=== PATIENT | male | born 1950 | race Caucasian/White ===

== ENCOUNTER 2016-08-17 13:35 | Day surgery (SDC) | payer OTHER ==
[~2016-08-17] VITALS: Ht 185.4 cm; Wt 90.0 kg
[~2016-08-17 13:35] MED LIST: ASPI-973 PO; ATOR80TA PO; COU5 PO; CYA1000I IM; FERR325T6 PO; GLYB2.5T5 PO; LISI1TAB9 PO; METF850T2 PO; METO25TA6 PO
[2016-08-17] MEDS ORDERED: Propofol 10,000 mCg/mL 20 mL Inj ONE (13:36)
[2016-08-17] MEDS ORDERED: Lidocaine PF 1% 30 mL Inj ONE (13:36)
[2016-08-17] MEDS ORDERED: MeTOProlol 1 mg/mL 5 mL Inj ONE (13:36)
[2016-08-17 14:05] VITALS: BP 151/91; PULSE 74; RESP 16; O2SAT 97
[2016-08-17] MEDS ORDERED: WARF5TAB PO (14:22)
--- NOTE | 2016-08-17 14:38 | PCM.HPANE ---
Patient Data Date of Service: August 17, 2016 Surgeon Admitting Provider: Attending Provider:Matthew Wright MD Primary Care Physician:Ladarius James MD Other Provider:Abril Santiago Anesthesia Reason for Visit Iron Def Anemia Ht/WT & BMI Height (Feet): 6 Height (Inches): 1 Weight (Kilograms): 90 Body Mass Index 26.00 Allergies Coded Allergies: No Known Allergies (Verified , 05/06/12) Past Anesthesia History Anesthesia History: Denies:: Abnormal Airway, Anesthesia Reactions, Difficult Intubation, Fam Anesthesia Reaction, Fam Malignant Hypertherm, Malignant Hyperthermia Diabetes History Hx Diabetes?: Yes Current Bedside Blood Glucose: 173 MRSA MRSA: No Medications Blood Thinner: Coumadin Last Dose Blood Thinner: August 12, 2016 Home Meds Incl Beta Andrew: Yes Date Beta Andrew Taken: August 15, 2016 Time Beta Andrew Taken: 0700 Previous Beta Andrew Dose >24: Give Dose Perioperatively Reported Medications Warfarin Sodium (Coumadin)5 Mg Tablet5 Mg PO DAILY 30 Days Ref 0 08/17/16 Metoprolol Tartrate 25 Mg Evhqlh99 Mg PO BID 30 Days Ref 0 08/13/16 Metformin 850 Mg Otbrgv251 Mg PO TID Ref 0 08/13/16 Lisinopril / HCTZ 20-12.5 mg 1 Each Tablet1 Each PO BID Ref 0 08/13/16 Ferrous Sulfate 325 Mg Tablet.dr325 Mg PO DAILY 30 Days Ref 0 08/13/16 Atorvastatin (Lipitor)80 Mg Oyreeo70 Mg PO DAILY Ref 0 08/13/16 Aspirin 81 Mg Vfwhdk26 Mg PO DAILY Ref 0 08/13/16 Warfarin Inactive Drug Do Not Use (Coumadin Inactive Drug Do Not Use)5 Mg Tablet5 Mg PO DAILY 1700 (5 PM) DAILY. To prevent blood clots 05/08/12 Glyburide-Expunged Drug, Do Not Renew! 2.5 Mg Tablet5 Mg PO BID For blood glucose control 05/05/12 Discontinued Reported Medications Cyanocobalamin (Cyanocobalamin Injection)1,000 Mcg/1 Ml Vial1,000 Mcg IM Monthly 08/13/16 Lisinopril-Expunged Drug, Do Not Renew! 10 Mg Shlxfd10 Mg PO DAILY For blood pressure control. 05/08/12 Metoprolol Tart-Expunged Drug, Do Not Renew! 50 Mg Zqxezr49 Mg PO BID For blood pressure/heart rate control. 05/08/12 Aspirin-Expunged Drug, Do Not Renew! 325 Mg Tnjlld338 Mg PO DAILY To protect your heart. 05/08/12 Lovastatin-Expunged Drug, Do Not Renew! 40 Mg Gmhbsl67 Mg PO To reduce cholesterol 05/05/12 Metformin-Expunged Drug, Do Not Renew! 1,000 Mg Tab.er.18193 Mg PO TID 05/05/12 History History of ENT Problems?: No HEENT History: Denies:: Abnormal Airway Difficult Intubation Dysphagia Hearing Problem Denture Type: Full- Upper Teeth Condition: Missing Teeth Hx of Heart Problems?: No Cardiovascular History: Positive for:: Atrial Fibrillation Hypertension Irregular Heartbeat (Afib today 05/05/12) Denies:: AICD Cardiac Surgery Chest Pain Congestive Heart Failure Edema Heart Murmur Pacemaker Thrombophlebitis Valvular Heart Disease Hx of Respiratory Problem?: Yes Respiratory History: Denies:: Asthma COPD Chest Surgery Cough Dyspnea Emphysema Hemoptysis Pneumonia Tuberculosis Hx Neurologic Problems?: No Neurological History: Denies:: CVA Hx of GI Problems?: Yes Hx of Problems?: Yes Genitourinary History: Denies:: HX of Hemodialysis Kidney Stones Urinary Tract Infection HX of Peritoneal Dialysis: No Male Hx: Denies:: Prostate Problems Scrotal Mass Testicular Surgery Hx Musculoskeletal Problems?: Yes Musculoskeletal History: Positive for:: Joint Replacement (partial) Denies:: Back Injury Fibromyalgia Musculoskeletal Trauma Hx of Psycho/Social Problems?: No Psycho Social History: Denies:: Anxiety Hx Depression Hx Surgeries?: Yes (partial knee) Hx Any Other Health Problems?: Yes Other History: Positive for:: Hospitalization (Left partial knee replacement) Denies:: Cancer Endocrine Disease Thyroid Disease History Blood Transfusions: Denies:: Blood Transfuse Reaction Blood Transfusions Hx Diabetes: YesBedside Blood Glucose: 173 Hx Alcohol Use: NoHx Substance Use: NoHave You Smoked inLast 12 mo: Yes Stop/Bang Treated for Sleep Apnea?: No Do You Have a CPAP Machine?: No S-Snoring: Do You Snore Loudly: No T-Tired: feel tired, fatigued: Yes O-Obsered: Observed not breath: No P-Blood Pressure: treated: Yes B- Body Mass Index > 35 kg/m2: No A- Age over 50: Yes N- Neck Large Circumference: No G- Gender Male: Yes BRYAN Total Score: 4 BRYAN Risk Assessment: High Risk, =/>3 Yes BRYAN Category 4 OutPt Procedure: Yes Risk Assessment Category Category 1A: Patient has history of documented sleep apnea, and HAS NOT received any narcotic, sedative or anesthesia administration during this stay. Category 1B: Patient has history of documented sleep apnea, and HAS received any narcotic , sedative or anesthesia administration during this stay Category 2: Patient has SUSPECTED Obstructive Sleep Apnea, and HAS received any narcotic , sedative or anesthesia administration during this stay. Category 3: Patient has SUSPECTED Obstructive Sleep Apnea and HAS NOT received narcotic, sedative or anesthesia administration during this stay. Category 4: Outpatient in Procedural Areas with known sleep apnea or who screen positive for High Risk via the STOP/BANG questionnaire. Exam Exam Vital Signs Vital Signs Date Time Temp Pulse Resp B/P Pulse Ox O2 Delivery O2 Flow Rate FiO2 08/17/16 14:05 36.7 74 16 151/91 97 Room Air General Appearance: Alert, Oriented X3, Cooperative, No Acute Distress HEENT/AIRWAY: MP 2 Lungs: Clear to Auscultation, Normal Air Movement Heart: Exam Unremarkable, Regular Rate/Rhythm, No Murmurs/Rubs/Gallops Meds/Labs/Diagnostics Bedside Blood Glucose: 173 Plan Impression Patient chart reviewed, patient interviewed and anesthestic plan with risks, benefits, and alternatives discussed, and informed consent obtained. NPO per Anesth. Guidelines: Yes ASA Physical Status: ASA3 Severe Disease Anesthetic Plan: TIVA Bene/Risks/Altern/Consents: Yes HP Complete Prior to Induction: Yes Ranjan Batista MD August 17, 2016 14:38
[2016-08-17] MEDS: Lactated Ringer's 1,000 ML IV ONE ×3 (14:46→15:08)
[2016-08-17 15:14] VITALS: BP 106/62; PULSE 64; RESP 14; O2SAT 96
[2016-08-17 15:24] VITALS: BP 106/65; PULSE 64; RESP 16; O2SAT 97
[2016-08-17 15:34] VITALS: BP 117/57; PULSE 63; RESP 14; O2SAT 97
--- NOTE | 2016-08-17 16:11 | PCM.ANEP1 ---
Post Anesthesia Phase 1 PACU Phase 1 Assessment Date of Service: August 17, 2016 Vital Signs Vital Signs Date Time Temp Pulse Resp B/P Pulse Ox O2 Delivery O2 Flow Rate FiO2 08/17/16 15:34 63 14 117/57 97 Room Air 08/17/16 15:24 64 16 106/65 97 Room Air 08/17/16 15:14 36.5 64 14 106/62 96 Room Air 08/17/16 14:05 36.7 74 16 151/91 97 Room Air Anesthetic Administered: TIVA Level of Alertness: Awake, talking MELVIN's with Equal Strength: Yes Pain: No Nausea or Vomiting: No Cardiovascular Function and Hy: Yes Oxygen Delivery: Room Air Lungs: Clear to Auscultation, Normal Air Movement Dermatome Level: Full Sensation Complications: No Follow up Care: No Ranjan Batista MD August 17, 2016 16:11
--- NOTE | 2016-08-17 16:14 | ENDO ---
[address] [address] ENDOSCOPY PROCEDURE PATIENT: ALMA BAILEY : 1950 MR#: [id number] ADMIT: 08/17/2016 JOB ID: [id number] DATE: 08/17/2016 TYPE OF OPERATION: 1. Esophagogastroduodenoscopy with biopsy. 2. Colonoscopy with hot snare polypectomy. PREOPERATIVE DIAGNOSIS(ES): Iron deficiency anemia. POSTOPERATIVE DIAGNOSIS(ES): 1. Normal upper endoscopy, status post biopsy. 2. Mild sigmoid diverticulosis including ascending colon diverticulosis. 3. There was a 5 mm sigmoid colon polyp removed by hot snare polypectomy. ANESTHESIA: Monitored anesthesia care. COMPLICATION: None. BLOOD LOSS: Minimal. DESCRIPTION OF PROCEDURE: After risks and benefits were explained to the patient, informed consent was obtained. After anesthesia administered, upper endoscope was then inserted into the mouth, intubating through the esophagus, stomach, second portion of the duodenum. Mucosa carefully examined. After procedure was done, the scope was withdrawn and procedure terminated. A colonoscope was then inserted per the rectum to the terminal ileum. Mucosa carefully examined. Prep of the patient was excellent. After the procedure was done, the scope withdrawn and procedure terminated. FINDINGS: Upon inspection of the esophagus, the esophagus was normal without masses, ulcers, or lesions. Z-line located 40 cm from incisors. Upon entering the stomach, the stomach was also normal without masses, ulcers or lesions. Retroflexion was normal. Duodenal bulb, first and second portion normal. Biopsies taken of the duodenum. Upon inspection of the anus, no masses, hemorrhoids, ulcers that were seen. Throughout the entire examination, there was mild sigmoid and ascending colon diverticulosis. Terminal ileum appeared normal. There was also a 5 mm sigmoid polyp, removed by hot snare polypectomy. Retroflexion was normal. IMPRESSION: 1. A 5 mm sigmoid polyp removed by hot snare polypectomy. 2. Normal upper endoscopy status post biopsy. 3. Mild sigmoid and ascending colon diverticulosis. RECOMMENDATION: Await pathology results. If tubular adenoma, then repeat colonoscopy in five years.
--- NOTE | 2016-08-19 11:16 | PATH ---
SURGICAL PATHOLOGY Attending Physician:Matthew Wright MD CASE STATUS: Signed Out PATIENT NAME: ALMA BAILEY PID: [id number] : 1950 DATE COLLECTED:08/17/2016 00:00 SPECIMEN: 1: Duodenum, Biopsy 2: Colon, Biopsy CLINICAL HISTORY: 1). DUODENAL BIOPSY 2). SIGMOID COLON POLYP FINAL DIAGNOSIS: 1.DUODENAL BIOPSY: DUODENAL MUCOSA WITH NO DIAGNOSTIC ALTERATIONS. Negative for inflammation, celiac, dysplasia and malignancy. 2.SIGMOID COLON POLYP: TRADITIONAL SERRATED ADENOMA, SEE COMMENT. Negative for dysplasia and malignancy. ICD10 code D12.5 NOTE: Current surveillance guidelines recommend that a traditional serrated adenoma should be managed similar to an advanced adenoma. Complete polypectomy and shortened surveillance interval are recommended. GROSS DESCRIPTION: The specimen is received in two formalin filled containers labeled with the patient's name. 1). The specimen is sublabeled "duodenal" and consists of 2 portions of tissue which aggregate to 0.3 x 0.3 x 0.2 CM. The specimen is entirely submitted in cassette 1A. 2). The specimen is sublabeled "sigmoid colon polyp" and consists of a 0.6 x 0.5 x 0.5 CM portion of tissue. The specimen is trisected and entirely submitted in cassette 2A. 08/18/2016 [facility] MICRO DESCRIPTION: See diagnosis. ICD-9 CODES: CPT CODES: 1: 49065 2: 17134 Electronically Signed Out Kesha Solis MD [facility] [address], [place] [address] Technical component performed at [facility], [facility] [address], [address]
== END 2016-08-17 23:59 | disposition home or self-care (01) ==
LOC: END 13:35
PROVIDERS: ATTEND Internal Medicine Gastroenterology
DX: K57.30 Diverticulosis of large intestine without perforation or abscess without bleeding (principal); D12.5 Benign neoplasm of sigmoid colon; D50.9 Iron deficiency anemia, unspecified; I10 Essential (primary) hypertension; I25.10 Atherosclerotic heart disease of native coronary artery without angina pectoris; E78.5 Hyperlipidemia, unspecified; I48.91 Unspecified atrial fibrillation; E11.9 Type 2 diabetes mellitus without complications; F17.210 Nicotine dependence, cigarettes, uncomplicated; Z79.01 Long term (current) use of anticoagulants; Z80.0 Family history of malignant neoplasm of digestive organs; Z86.73 Personal history of transient ischemic attack (TIA), and cerebral infarction without residual deficits; Z79.82 Long term (current) use of aspirin; Z79.4 Long term (current) use of insulin; Z79.84 Long term (current) use of oral hypoglycemic drugs; Z96.652 Presence of left artificial knee joint
CPT/HCPCS: 43239; 45380; 45385; J7120